=== PATIENT | male | born 1955 | race African-American/Black ===

== ENCOUNTER 2024-10-03 19:10 | Inpatient (IN) | payer MEDICARE, MEDICAID ==
[~2024-10-03] VITALS: Ht 175.3 cm; Wt 79.4 kg
[~2024-10-03 19:10] MED LIST: ATOR40TA70 PO; METF-416 MT; losartan PO
[2024-10-03 20:00] VITALS: BP 136/62; PULSE 94; RESP 18; TEMP 37.1; O2SAT 99
[2024-10-03 20:10] VITALS: BP 136/62; PULSE 94; RESP 18; TEMP 37.1
[2024-10-03] MEDS ORDERED: DEXTROSE 50% WATER 50ML SYRINGE IV PRN (20:30)
[2024-10-03] MEDS ORDERED: ASPI-1406 PO (20:59)
[2024-10-03] MEDS: ATORVASTATIN CALCIUM 40MG TABLET PO SCH (21:02)
[2024-10-03] MEDS: BLOOD SUGAR DIAGNOSTIC STRIP TEST SCH (21:05)
[2024-10-03] MEDS: INSULIN LISPRO 100 UNITS/ML SUBCUT SCH (21:12)
[2024-10-03] MEDS: ACETAMINOPHEN 325MG TABLET PO PRN (23:56)
[2024-10-03] MEDS: ZOLPIDEM TARTRATE 5MG TABLET PO PRN (23:56)
[2024-10-04 08:00] VITALS: BP 123/70; PULSE 87; RESP 18; TEMP 36.7; O2SAT 98
[2024-10-04] MEDS: LOSARTAN 50 MG TABLET PO SCH (09:28)
[2024-10-04 11:16] LABS: BASOPHILS % 1.3 % (0.0-2.0); EOSINOPHILS % 1.3 % (0.0-5.0); HEMATOCRIT. 33.1 % (42.0-52.0); HEMOGLOBIN. 10.2 g/dL (14.0-18.0); MEAN CORPUSCULAR HEMOGLOBIN 19.6 pg (28.0-32.0); MEAN CORPUSCULAR HGB CONC 30.8 g/dL (31.0-37.0); MEAN CORPUSCULAR VOLUME 63.8 fL (80.0-94.0); MEAN PLATELET VOLUME 7.9 fl (7.4-10.4); MONOCYTES % 4.7 % (2.0-8.0); NEUTROPHILS % 74.7 % (40.0-76.0); PLATELET 550 x1000/uL (130-400); RED BLOOD CELL COUNT 5.19 mill/uL (4.7-6.1); WHITE BLOOD COUNT 11.3 x1000/uL (4.5-11.0)
[2024-10-04 11:22] LABS: ADD RBC MORPHOLOGY YES; DIFFERENTIAL COMMENT 1
[2024-10-04 11:23] LABS: CHLORIDE 103 mEq/L (98-107); POTASSIUM 4.8 mEq/L (3.5-5.1); SODIUM 136 mEq/L (136-145)
[2024-10-04 11:24] LABS: CALCIUM 9.3 mg/dL (8.7-10.4); CARBON DIOXIDE 26 mEq/L (21-32)
[2024-10-04 11:29] LABS: CREATININE 1.2 mg/dL (0.6-1.3); GLUCOSE 130 mg/dL (70-105)
[2024-10-04 11:30] LABS: UREA NITROGEN BLOOD 21 mg/dL (9-23)
[2024-10-04 11:31] LABS: ALANINE AMINOTRANSFERASE 45 IU/L (10-49); ALBUMIN 4.1 g/dL (3.2-4.8); ASPARTATE AMINOTRANSFERASE 29 IU/L (<34)
[2024-10-04 11:32] LABS: BILIRUBIN TOTAL 0.3 mg/dL (0.1-1.0); PROTEIN TOTAL 7.7 g/dL (6.0-8.3)
[2024-10-04] MEDS: VANCOMYCIN 1.5GM PMX (XELLIA) 300 ML IV SCH (17:02)
[2024-10-04 19:52] LABS: PLATELET ESTIMATE MARKEDLY INCREASED
[2024-10-04 20:00] VITALS: BP 156/88; PULSE 80; RESP 19; TEMP 36.7; O2SAT 99
[2024-10-04] MEDS: PREDNISONE 10MG TABLET PO SCH (20:21)
[2024-10-04] MEDS: PREGABALIN 75MG CAPSULE PO SCH (20:21)
[2024-10-04] MEDS: DICLOFENAC SODIUM 75MG DR TABLET PO SCH (20:22)
[2024-10-04] MEDS: BUPROPION HCL 75MG TABLET PO SCH (20:22)
[2024-10-05 07:46] LABS: URIC ACID 4.5 mg/dL (3.7-9.2)
[2024-10-05 08:00] VITALS: BP 151/73; PULSE 84; RESP 18; TEMP 36.5; O2SAT 98
[2024-10-05 08:48] VITALS: BP 151/73; PULSE 84; RESP 18; TEMP 36.5; O2SAT 98
[2024-10-05] MEDS: LOSARTAN 50 MG TABLET PO SCH (13:30)
[2024-10-05 20:00] VITALS: BP 160/73; PULSE 83; RESP 18; TEMP 36.7; O2SAT 98
[2024-10-06] MEDS: ONDANSETRON HCL 4MG/2ML INJ IV PRN (02:00)
[2024-10-06 07:07] LABS: CHLORIDE 104 mEq/L (98-107); POTASSIUM 5.5 mEq/L (3.5-5.1); SODIUM 136 mEq/L (136-145)
[2024-10-06 07:08] LABS: CALCIUM 9.6 mg/dL (8.7-10.4); CARBON DIOXIDE 27 mEq/L (21-32)
[2024-10-06 07:13] LABS: CREATININE 1.1 mg/dL (0.6-1.3); GLUCOSE 127 mg/dL (70-105); UREA NITROGEN BLOOD 25 mg/dL (9-23)
[2024-10-06 08:00] VITALS: BP 151/77; PULSE 71; RESP 16; TEMP 36.7; O2SAT 96
[2024-10-06] MEDS: SODIUM ZIRCONIUM CYCLOSILICATE 10GM/PACKET PO NR (12:07)
[2024-10-06 19:09] LABS: POTASSIUM 5.5 mEq/L (3.5-5.1)
[2024-10-06 20:00] VITALS: BP 167/83; PULSE 81; RESP 18; TEMP 36.9; O2SAT 98
[2024-10-06] MEDS: POLYETHYLENE GLYCOL 3350 (17GM) 1 DOSE PACK PO SCH (22:16)
[2024-10-07 07:21] LABS: CALCIUM 9.4 mg/dL (8.7-10.4); CHLORIDE 101 mEq/L (98-107); POTASSIUM 4.9 mEq/L (3.5-5.1); SODIUM 136 mEq/L (136-145)
[2024-10-07 07:22] LABS: CARBON DIOXIDE 27 mEq/L (21-32)
[2024-10-07 07:24] LABS: BASOPHILS % 0.9 % (0.0-2.0); EOSINOPHILS % 0.4 % (0.0-5.0); HEMATOCRIT. 31.6 % (42.0-52.0); HEMOGLOBIN. 10.1 g/dL (14.0-18.0); LYMPHOCYTES % 13.9 % (20.0-50.0); MEAN CORPUSCULAR HEMOGLOBIN 20.2 pg (28.0-32.0); MEAN CORPUSCULAR HGB CONC 31.9 g/dL (31.0-37.0); MEAN CORPUSCULAR VOLUME 63.3 fL (80.0-94.0); MEAN PLATELET VOLUME 7.9 fl (7.4-10.4); MONOCYTES % 5.1 % (2.0-8.0); NEUTROPHILS % 79.7 % (40.0-76.0); PLATELET 538 x1000/uL (130-400); RED BLOOD CELL COUNT 4.99 mill/uL (4.7-6.1); RED CELL DISTRIBUTION WIDTH 15.2 % (11.6-14.6); WHITE BLOOD COUNT 15.4 x1000/uL (4.5-11.0)
[2024-10-07 07:27] LABS: CREATININE 1.1 mg/dL (0.6-1.3); GLUCOSE 124 mg/dL (70-105); UREA NITROGEN BLOOD 22 mg/dL (9-23)
[2024-10-07 08:00] VITALS: BP 154/84; PULSE 80; RESP 18; TEMP 36.5; O2SAT 100
[2024-10-07 08:40] LABS: DIFFERENTIAL COMMENT 1
[2024-10-07] MEDS: AMLODIPINE 5MG TABLET PO SCH (13:30)
[2024-10-07 20:00] VITALS: BP 152/81; PULSE 69; RESP 19; TEMP 36.7; O2SAT 98
[2024-10-08 07:21] LABS: CARBON DIOXIDE 27 mEq/L (21-32); CHLORIDE 101 mEq/L (98-107); POTASSIUM 5.1 mEq/L (3.5-5.1); SODIUM 136 mEq/L (136-145)
[2024-10-08 07:23] LABS: CALCIUM 9.1 mg/dL (8.7-10.4)
[2024-10-08 07:27] LABS: CREATININE 1.1 mg/dL (0.6-1.3); GLUCOSE 148 mg/dL (70-105)
[2024-10-08 07:28] LABS: UREA NITROGEN BLOOD 17 mg/dL (9-23)
[2024-10-08 08:00] VITALS: BP 126/64; PULSE 77; RESP 18; TEMP 35.9; O2SAT 100
[2024-10-08 08:10] LABS: BASOPHILS % 0.4 % (0.0-2.0); EOSINOPHILS % 0.2 % (0.0-5.0); HEMATOCRIT. 30.9 % (42.0-52.0); HEMOGLOBIN. 9.5 g/dL (14.0-18.0); LYMPHOCYTES % 13.1 % (20.0-50.0); MEAN CORPUSCULAR HEMOGLOBIN 19.5 pg (28.0-32.0); MEAN CORPUSCULAR HGB CONC 30.7 g/dL (31.0-37.0); MEAN CORPUSCULAR VOLUME 63.6 fL (80.0-94.0); MEAN PLATELET VOLUME 7.9 fl (7.4-10.4); MONOCYTES % 5.3 % (2.0-8.0); PLATELET 528 x1000/uL (130-400); RED BLOOD CELL COUNT 4.86 mill/uL (4.7-6.1); RED CELL DISTRIBUTION WIDTH 14.6 % (11.6-14.6); WHITE BLOOD COUNT 17.7 x1000/uL (4.5-11.0)
[2024-10-08] MEDS: PREDNISONE 10MG TABLET PO SCH (08:37)
[2024-10-08 09:35] LABS: DIFFERENTIAL COMMENT 1
[2024-10-08] MEDS: SODIUM ZIRCONIUM CYCLOSILICATE 10GM/PACKET PO SCH (09:43)
[2024-10-08 15:11] LABS: ACTIN (SMOOTH MUSCLE) ANTIBODY 13 Units (0-19); ANTI-MYELOPEROXIDASE AB < 0.2 units (0.0-0.9); ANTI-PROTEINASE 3 ABS < 0.2 units (0.0-0.9)
[2024-10-08 20:00] VITALS: BP 143/73; PULSE 81; RESP 20; TEMP 37.1; O2SAT 96
[2024-10-08] MEDS: AMLODIPINE 5MG TABLET PO SCH (21:16)
[2024-10-09 06:12] LABS: ALDOLASE 4.3 U/L (3.3-10.3); ATYPICAL P-ANCA <1:20 titer (Neg:<1:20); CYTOPLASMIC C-ANCA <1:20 titer (Neg:<1:20); PERINUCLEAR P-ANCA <1:20 titer (Neg:<1:20)
[2024-10-09 06:27] LABS: BASOPHILS % 0.7 % (0.0-2.0); EOSINOPHILS % 0.9 % (0.0-5.0); HEMATOCRIT. 30.8 % (42.0-52.0); HEMOGLOBIN. 9.8 g/dL (14.0-18.0); LYMPHOCYTES % 16.6 % (20.0-50.0); MEAN CORPUSCULAR HEMOGLOBIN 20.2 pg (28.0-32.0); MEAN CORPUSCULAR HGB CONC 31.7 g/dL (31.0-37.0); MEAN CORPUSCULAR VOLUME 63.5 fL (80.0-94.0); MEAN PLATELET VOLUME 7.6 fl (7.4-10.4); MONOCYTES % 8.5 % (2.0-8.0); NEUTROPHILS % 73.3 % (40.0-76.0); PLATELET 502 x1000/uL (130-400); RED BLOOD CELL COUNT 4.85 mill/uL (4.7-6.1); RED CELL DISTRIBUTION WIDTH 14.9 % (11.6-14.6); WHITE BLOOD COUNT 15.9 x1000/uL (4.5-11.0)
[2024-10-09 06:47] LABS: CARBON DIOXIDE 29 mEq/L (21-32); CHLORIDE 100 mEq/L (98-107); POTASSIUM 4.5 mEq/L (3.5-5.1); SODIUM 136 mEq/L (136-145)
[2024-10-09 06:48] LABS: CALCIUM 9.2 mg/dL (8.7-10.4)
[2024-10-09 06:53] LABS: CREATININE 1.1 mg/dL (0.6-1.3); GLUCOSE 136 mg/dL (70-105); UREA NITROGEN BLOOD 19 mg/dL (9-23)
[2024-10-09 07:47] LABS: DIFFERENTIAL COMMENT 1
[2024-10-09 07:48] LABS: ADD RBC MORPHOLOGY YES
[2024-10-09 08:00] VITALS: BP 107/68; PULSE 86; RESP 20; TEMP 36.5; O2SAT 97
[2024-10-09] MEDS: FOLIC ACID/VITAMIN B COMP W-C TABLET PO SCH (09:05)
[2024-10-09] MEDS: ERGOCALCIFEROL 50000UNITS CAPSULE PO SCH (09:05)
[2024-10-09 10:07] VITALS: PULSE 78; PULSE 86; RESP 16; TEMP 97.2
[2024-10-09 11:05] LABS: MICROCYTOSIS 3+; PLATELET ESTIMATE INCREASED
[2024-10-09 20:00] VITALS: BP 141/84; PULSE 91; RESP 17; TEMP 36.6; O2SAT 100
[2024-10-09] MEDS ORDERED: ZOLPIDEM TARTRATE 5MG TABLET PO PRN ×2 (21:00→21:30)
[2024-10-09] MEDS: ZOLPIDEM TARTRATE 5MG TABLET PO PRN (22:43)
[2024-10-10 04:09] LABS: ANA IFA Negative (.)
[2024-10-10 08:00] VITALS: BP 143/73; PULSE 79; RESP 18; TEMP 36.8; O2SAT 97
[2024-10-10] MEDS: PREDNISONE 5MG TABLET PO SCH (09:31)
[2024-10-10] MEDS: PANTOPRAZOLE 40MG DR TABLET PO SCH (09:32)
[2024-10-10 20:00] VITALS: BP 122/69; PULSE 80; RESP 19; TEMP 36.3; O2SAT 100
[2024-10-11 08:00] VITALS: BP 124/74; PULSE 83; RESP 19; TEMP 36.6; O2SAT 98
[2024-10-11] MEDS ORDERED: AMLO5TAB88 PO (10:04)
[2024-10-11] MEDS ORDERED: BUPR75TA8 PO (10:04)
[2024-10-11 13:23] VITALS: BP 127/77; PULSE 76; TEMP 97.8; O2SAT 98
== END 2024-10-11 14:14 | disposition home health service (06) | DRG 70 ==
PROVIDERS: ADMIT Physical Medicine & Rehabilitation Spinal Cord Injury Medicine; ATTEND Internal Medicine
PROC: 0R9L3ZZ Drainage of Right Elbow Joint, Percutaneous Approach (ICD-10-PCS; principal; 2024-10-04)
PROC: 3E0133Z Introduction of Anti-inflammatory into Subcutaneous Tissue, Percutaneous Approach (ICD-10-PCS; 2024-10-04)
PROC: 3E013BZ Introduction of Anesthetic Agent into Subcutaneous Tissue, Percutaneous Approach (ICD-10-PCS; 2024-10-04)
DX: G93.41 Metabolic encephalopathy (principal); A41.9 Sepsis, unspecified organism; G82.50 Quadriplegia, unspecified; L03.114 Cellulitis of left upper limb; N39.0 Urinary tract infection, site not specified; M62.82 Rhabdomyolysis; N17.9 Acute kidney failure, unspecified; E11.52 Type 2 diabetes mellitus with diabetic peripheral angiopathy with gangrene; E11.42 Type 2 diabetes mellitus with diabetic polyneuropathy; M18.12 Unilateral primary osteoarthritis of first carpometacarpal joint, left hand; E55.9 Vitamin D deficiency, unspecified; M25.461 Effusion, right knee; M25.462 Effusion, left knee; R26.9 Unspecified abnormalities of gait and mobility; M72.2 Plantar fascial fibromatosis; D64.9 Anemia, unspecified; G56.21 Lesion of ulnar nerve, right upper limb; M79.7 Fibromyalgia; M75.102 Unspecified rotator cuff tear or rupture of left shoulder, not specified as traumatic; E78.5 Hyperlipidemia, unspecified; E87.5 Hyperkalemia; F17.210 Nicotine dependence, cigarettes, uncomplicated; E11.65 Type 2 diabetes mellitus with hyperglycemia; F14.10 Cocaine abuse, uncomplicated; M20.11 Hallux valgus (acquired), right foot; M20.12 Hallux valgus (acquired), left foot; M51.370 Other intervertebral disc degeneration, lumbosacral region with discogenic back pain only; M77.41 Metatarsalgia, right foot; M77.42 Metatarsalgia, left foot; R29.6 Repeated falls; M21.612 Bunion of left foot; M21.611 Bunion of right foot; R53.1 Weakness; R53.81 Other malaise; R79.89 Other specified abnormal findings of blood chemistry; E11.22 Type 2 diabetes mellitus with diabetic chronic kidney disease; I12.9 Hypertensive chronic kidney disease with stage 1 through stage 4 chronic kidney disease, or unspecified chronic kidney disease; Z87.440 Personal history of urinary (tract) infections; Z91.81 History of falling; Z79.899 Other long term (current) drug therapy; Z79.82 Long term (current) use of aspirin
CPT/HCPCS: 36415; 72110; 73070; 73130; 73560; 80048; 80053; 80202; 82085; 82550; 82962; 83036; 83520; 84132; 84134; 84145; 84550; 85025; 86235; 86256; 86431; 92523; 93005; 93306; 97110; 97112; 97116; 97162; 97166; 97530; 97535; J1815; J2405; J3370; J7512